=== PATIENT | female | born 1970 ===

== ENCOUNTER 2017-02-05 11:39 | Emergency (ER) | payer OTHER ==
[2017-02-05 11:48] VITALS: RESP 18; TEMP 98.3
[2017-02-05 12:13] VITALS: BP 149/74; PULSE 87; O2SAT 99
[2017-02-05 12:46] LABS: APPEARANCE,URINE Clear; BILIRUBIN,URINE NEGATIVE (NEGATIVE); COLOR,URINE Yellow; GLUCOSE, URINE (UA) NEGATIVE (NEGATIVE); KETONES,URINE NEGATIVE (NEGATIVE); LEUKOCYTE ESTERASE ,URINE NEGATIVE (NEGATIVE); NITRATE,URINE NEGATIVE (NEGATIVE); OCCULT BLOOD,URINE TRACE INTACT (NEG-TRACE)
[2017-02-05 12:52] LABS: RBC,URINE NEGATIVE (0-3AV/HPF); WBC,URINE 0-1 (0-5AV/HPF)
== END 2017-02-05 13:59 | disposition home or self-care (01) ==
LOC: ED 11:39
DX: M51.26 Other intervertebral disc displacement, lumbar region (principal)
CPT/HCPCS: 72131; 81001; 99283

== ENCOUNTER 2017-02-19 14:09 | Day surgery (SDC) | payer OTHER ==
[2017-02-19 14:34] VITALS: O2SAT 97
[2017-02-19] MEDS ORDERED: LIDOCAINE HCL 1% MPF SOL ONE (15:14)
[2017-02-19] MEDS ORDERED: TRIAMCINOLONE ACETONIDE 40 MG/ML SUS ONE (15:14)
[2017-02-19 15:43] VITALS: PULSE 88; RESP 20; TEMP 97.2
[2017-02-19 15:44] VITALS: BP 118/53
== END 2017-02-19 16:05 | disposition home or self-care (01) ==
LOC: SURG 14:09
PROVIDERS: ATTEND Nurse Anesthetist, Certified Registered
DX: M48.06 Spinal stenosis, lumbar region (principal); M54.5 Low back pain
CPT/HCPCS: 62323; 77003; J3300; J2001